=== PATIENT | female | born 1980 | race Caucasian/White ===

== ENCOUNTER → 2022-03-15 | Outpatient (CLI) | payer MEDICAID ==
[~2022-03-15] MED LIST: LAMICTAL 100MG100 MG PO
== END ==
LOC: MAMMO 09:15
DX: Z12.31 Encounter for screening mammogram for malignant neoplasm of breast (principal)

== ENCOUNTER 2023-04-04 07:47 | Outpatient (RCR) | payer MEDICAID | END 2023-05-04 | disposition home or self-care (01) | LOC: OT | DX: G80.9 Cerebral palsy, unspecified (principal) ==

== ENCOUNTER → 2023-12-27 | Outpatient (CLI) | payer MEDICAID | LOC: MAMMO 15:30 | DX: Z12.31 Encounter for screening mammogram for malignant neoplasm of breast (principal) ==

== ENCOUNTER 2024-02-19 08:00 | Outpatient (RCR) | payer MEDICAID | END 2024-03-03 | LOC: PT | DX: R29.898 Other symptoms and signs involving the musculoskeletal system (principal) ==

== ENCOUNTER 2024-02-19 08:00 | Outpatient (RCR) | payer MEDICAID | END 2024-03-03 | LOC: OT | DX: R25.2 Cramp and spasm (principal) ==

== ENCOUNTER 2024-03-04 08:00 | Outpatient (RCR) | payer MEDICAID | END 2024-04-03 | disposition home or self-care (01) | LOC: PT | DX: R29.898 Other symptoms and signs involving the musculoskeletal system (principal) ==

== ENCOUNTER 2024-03-04 08:00 | Outpatient (RCR) | payer MEDICAID | END 2024-04-03 | LOC: OT | DX: R25.2 Cramp and spasm (principal) ==

== ENCOUNTER 2024-04-08 08:02 | Outpatient (RCR) | payer MEDICAID | END 2024-05-04 | disposition home or self-care (01) | LOC: OT | DX: R25.2 Cramp and spasm (principal) ==

== ENCOUNTER 2024-04-08 08:02 | Outpatient (RCR) | payer MEDICAID | END 2024-05-04 | disposition home or self-care (01) | LOC: PT | DX: R29.898 Other symptoms and signs involving the musculoskeletal system (principal) ==

== ENCOUNTER 2024-05-07 08:15 | Outpatient (RCR) | payer MEDICAID | END 2024-06-03 | disposition home or self-care (01) | LOC: OT | DX: R25.2 Cramp and spasm (principal) ==

== ENCOUNTER 2024-05-07 08:15 | Outpatient (RCR) | payer MEDICAID | END 2024-06-03 | disposition home or self-care (01) | LOC: PT | DX: R29.898 Other symptoms and signs involving the musculoskeletal system (principal) ==

== ENCOUNTER 2024-06-10 08:00 | Outpatient (RCR) | payer MEDICAID | END 2024-07-04 | disposition home or self-care (01) | LOC: OT | DX: R25.2 Cramp and spasm (principal) ==

== ENCOUNTER 2024-06-10 08:21 | Outpatient (RCR) | payer MEDICAID | END 2024-07-04 | disposition home or self-care (01) | LOC: PT | DX: R29.898 Other symptoms and signs involving the musculoskeletal system (principal); G80.1 Spastic diplegic cerebral palsy ==